=== PATIENT | female | born 1960 | race African-American/Black ===

== ENCOUNTER 2019-01-06 15:17 | Outpatient (CLI) | payer OTHER ==
[2019-01-06 16:08] LABS: MICROSCOPIC NOT IND
[2019-01-06] MEDS ORDERED: METO-93 PO (16:28)
[2019-01-06] MEDS ORDERED: CALC-126 PO (16:28)
[2019-01-06] MEDS ORDERED: CELE200C PO (16:28)
[2019-01-06] MEDS ORDERED: IRBE300T16 PO (16:28)
[2019-01-06] MEDS ORDERED: HYDR25TA6 PO (16:28)
[2019-01-06] MEDS ORDERED: CHOL2000 PO (16:28)
[2019-01-06] MEDS ORDERED: HYDR200T72 PO (16:28)
[2019-01-06 16:30] LABS: CULTURE INDICATED? NO
[2019-01-13] MEDS ORDERED: DOCU-131 PO (17:48)
[2019-01-13] MEDS ORDERED: ACET-1757 PO (17:50)
[2019-01-13] MEDS ORDERED: ONDA4TAB13 SL (17:51)
[2019-01-13] MEDS ORDERED: IBUP200T49 PO (17:53)
[2019-01-13] MEDS ORDERED: OXYC-302 PO (17:54)
[2019-01-29] MEDS ORDERED: POTA10TA5 PO (15:42)
== END 2019-01-06 23:59 | disposition home or self-care (01) ==
LOC: STAR 15:17
PROVIDERS: ATTEND Obstetrics & Gynecology
DX: Z01.818 Encounter for other preprocedural examination (principal); N81.4 Uterovaginal prolapse, unspecified; N93.9 Abnormal uterine and vaginal bleeding, unspecified
CPT/HCPCS: 81003; 93005

== ENCOUNTER 2019-01-12 09:43 | Inpatient (IN) | payer OTHER ==
[~2019-01-12] VITALS: Ht 162.6 cm; Wt 98.2 kg
[2019-01-13 18:01] VITALS: BP 114/64
== END 2019-01-13 18:14 | disposition home or self-care (01) | DRG 743 ==
LOC: OUT 09:43 → 4NOR 18:20 → OUT 19:26 → 4NOR 19:27
PROVIDERS: ADMIT Obstetrics & Gynecology; ATTEND Obstetrics & Gynecology
PROC: 0JQC0ZZ Repair Pelvic Region Subcutaneous Tissue and Fascia, Open Approach (ICD-10-PCS; principal; 2019-01-12)
PROC: 0UT9FZZ Resection of Uterus, Via Natural or Artificial Opening With Percutaneous Endoscopic Assistance (ICD-10-PCS; 2019-01-12)
PROC: 0TJB8ZZ Inspection of Bladder, Via Natural or Artificial Opening Endoscopic (ICD-10-PCS; 2019-01-12)
DX: N81.4 Uterovaginal prolapse, unspecified (principal); Z88.8 Allergy status to other drugs, medicaments and biological substances; Z91.040 Latex allergy status; M32.9 Systemic lupus erythematosus, unspecified
CPT/HCPCS: 81003; 88305; G0378; J0171; J0690; J2250; J2704; J3010; J1940; J2370; J7120